=== PATIENT | female | born 1930 | race Caucasian/White ===

== ENCOUNTER 2017-12-08 07:58 | Inpatient (IN) | payer OTHER ==
[~2017-12-08] VITALS: Ht 167.6 cm; Wt 69.3 kg
[2017-12-08 08:57] LABS: Basophils # (auto) 0.1 uL; Basophils % (auto) 0.7 % (0.0-2.0); Eosinophils # (auto) 0.3 uL; Eosinophils % (auto) 2.1 % (0.0-7.0); Hematocrit 35.8 % (36.0-46.0); Hemoglobin 11.8 g/dL (12.2-16.2); Lymphocytes % (auto) 6.4 % (10.0-50.0); Mean Corpuscular Hemoglobin 31.1 pg (28.0-32.0); Mean Corpuscular Hgb Conc. 32.8 g/dL (32.0-36.0); Mean Corpuscular Volume 94.7 fL (80.0-100.0); Monocytes % (auto) 6.4 % (0.0-12.0); Neutrophils # (auto) 13.5 uL; Neutrophils % (auto) 84.4 % (37.0-80.0); Platelet Count (auto) 423 10^3/uL (140-450); Red Blood Cells 3.78 10^6/uL (4.0-5.20); Red Cell Distribution Width 15.6 % (11.8-14.3)
[2017-12-08 09:09] LABS: INR 0.99 (0.9-1.15); Partial Thromboplastin Time 29.2 sec (22.64-33.71); Prothrombin Time 10.8 sec (9.37-12.3)
[2017-12-08 09:23] LABS: Alanine Aminotransferase 15 U/L (13-56); Albumin 3.5 g/dL (3.4-5.0); Alkaline Phosphatase 67 U/L (45-117); Anion Gap 10 (5-15); Aspartate Aminotransferase 18 U/L (15-37); BUN/Creatinine Ratio 24.5; Bilirubin, Total 0.8 mg/dL (0.2-1.0); Blood Urea Nitrogen 39 mg/dL (7-18); Calcium 8.8 mg/dL (8.5-10.1); Carbon Dioxide 19 mmol/L (21-32); Chloride 108 mmol/L (98-107); GFR African American 39 mL/min; GFR Non-African American 33 mL/min; Glucose 116 mg/dL (74-106); Potassium 3.5 mmol/L (3.5-5.1); Sodium 137 mmol/L (136-145); Total Protein 7.4 g/dL (6.4-8.2)
[2017-12-08 10:22] LABS: Urine Bacteria MOD /hpf (None Seen); Urine Blood 1+ /uL (Negative); Urine Mucus FEW (None Seen); Urine Specific Gravity 1.029 (1.001-1.035); Urine WBC 108 /hpf (0 - 5); Urine WBC Clumps PRESENT /hpf (None Seen)
[2017-12-08] MEDS ORDERED: MORPHINE SULFATE 4 MG/ML SYR/VIAL IV ONE (10:30)
[2017-12-08] MEDS ORDERED: PROMETHAZINE HCL 25 MG/ML 1ML IV ONE (10:30)
[2017-12-08] MEDS ORDERED: PROMETHAZINE HCL 25 MG/ML 1ML IV PRN (10:45)
[2017-12-08] MEDS ORDERED: LABETALOL HCL 5 MG/ML ML 20ML VIAL IV PRN (10:45)
[2017-12-08] MEDS ORDERED: LACTULOSE 20Gm/30ML SOLN PO PRN (10:45)
[2017-12-08] MEDS ORDERED: NITROGLYCERIN 0.4 MG SL TAB SL PRN (10:45)
[2017-12-08] MEDS ORDERED: cefTRIAXone 1GM/10ml IVPUSH 10 ML IV ONE (10:45)
[2017-12-08] MEDS ORDERED: LORazepam 0.5 MG TAB PO PRN (10:45)
[2017-12-08] MEDS ORDERED: ACETAMINOPHEN 500 MG TAB PO PRN (10:45)
[2017-12-08] MEDS ORDERED: MORPHINE SULFATE 4 MG/ML SYR/VIAL IV PRN (10:45)
[2017-12-08] MEDS: SODIUM CHLORIDE 0.9% 1,000 ML IV SCH ×2 (11:00→20:38)
[2017-12-08 11:41] LABS: Folate (Folic Acid) 5.26 ng/mL (5.38-24)
[2017-12-08 17:00] VITALS: BP 100/52
[2017-12-08] MEDS ORDERED: NAPR1TAB PO (17:27)
[2017-12-08] MEDS ORDERED: SERT-135 PO (17:27)
[2017-12-08] MEDS: MORPHINE SULFATE 4 MG/ML SYR/VIAL IV PRN (20:06)
[2017-12-08] MEDS: HYDROcodone-ACET 5/325MG TAB PO PRN (21:42)
[2017-12-08 22:25] VITALS: BP 99/57
[2017-12-08] MEDS: TEMAZEPAM 15 MG CAP PO PRN (23:18)
[2017-12-09 05:16] VITALS: BP 120/68
[2017-12-09] MEDS: SODIUM CHLORIDE 0.9% 1,000 ML IV SCH ×2 (06:21→13:00)
[2017-12-09 06:42] LABS: Basophils # (auto) 0.2 uL; Basophils % (auto) 1.3 % (0.0-2.0); Eosinophils # (auto) 0.5 uL; Eosinophils % (auto) 3.4 % (0.0-7.0); Hematocrit 26.3 % (36.0-46.0); Hemoglobin 8.9 g/dL (12.2-16.2); Lymphocytes # (auto) 1.9 uL; Lymphocytes % (auto) 12.6 % (10.0-50.0); Mean Corpuscular Hemoglobin 32.4 pg (28.0-32.0); Mean Corpuscular Hgb Conc. 33.6 g/dL (32.0-36.0); Mean Corpuscular Volume 96.4 fL (80.0-100.0); Monocytes # (auto) 1.1 uL; Monocytes % (auto) 7.7 % (0.0-12.0); Neutrophils # (auto) 11.2 uL; Nucleated Red Blood Cells % 0.1 %; Platelet Count (auto) 332 10^3/uL (140-450); Red Blood Cells 2.73 10^6/uL (4.0-5.20); White Blood Cell 14.9 10^3/uL (4.4-10.8)
[2017-12-09 06:51] LABS: Potassium 3.9 mmol/L (3.5-5.1)
[2017-12-09 06:59] LABS: Albumin 2.6 g/dL (3.4-5.0); BUN/Creatinine Ratio 26.5; Calcium 7.8 mg/dL (8.5-10.1); Total Protein 6.3 g/dL (6.4-8.2)
[2017-12-09 07:01] LABS: Bilirubin, Total 0.7 mg/dL (0.2-1.0)
[2017-12-09 08:30] VITALS: BP 109/61
[2017-12-09] MEDS: cefTRIAXone 1GM/10ml IVPUSH 10 ML IV SCH (08:40)
[2017-12-09] MEDS: PANTOPRAZOLE 40 MG TAB PO SCH (08:40)
[2017-12-09] MEDS: CYANOCOBALAMIN 500 MCG TAB PO SCH (08:40)
[2017-12-09] MEDS: FOLIC ACID 1 MG TAB PO SCH (08:40)
[2017-12-09] MEDS: HYDROcodone-ACET 5/325MG TAB PO PRN ×2 (08:44→21:38)
[2017-12-09] MEDS: MORPHINE SULFATE 4 MG/ML SYR/VIAL IV PRN ×2 (11:27→19:34)
[2017-12-09 12:30] VITALS: BP 160/79
[2017-12-09] MEDS ORDERED: SERTRALINE HCL 50 MG TAB PO ONE (14:00)
[2017-12-09] MEDS: ALPRAZolam 0.25 MG TAB PO PRN (14:48)
[2017-12-09 16:33] VITALS: BP 104/69
[2017-12-09 21:52] VITALS: BP 127/91
[2017-12-09] MEDS: TEMAZEPAM 15 MG CAP PO PRN (22:57)
[2017-12-10] MEDS: ALPRAZolam 0.25 MG TAB PO PRN ×3 (01:16→19:40)
[2017-12-10 04:40] VITALS: BP 128/66
[2017-12-10] MEDS: SODIUM CHLORIDE 0.9% 1,000 ML IV SCH (05:38)
[2017-12-10 07:13] LABS: Basophils # (auto) 0.1 uL; Eosinophils # (auto) 0.6 uL; Lymphocytes # (auto) 1.7 uL; Platelet Count (auto) 325 10^3/uL (140-450)
[2017-12-10 07:20] LABS: Basophils % (auto) 0.6 % (0.0-2.0); Eosinophils % (auto) 5.2 % (0.0-7.0); Hematocrit 24.9 % (36.0-46.0); Hemoglobin 8.2 g/dL (12.2-16.2); Lymphocytes % (auto) 15.3 % (10.0-50.0); Mean Corpuscular Hemoglobin 31.9 pg (28.0-32.0); Mean Corpuscular Volume 96.6 fL (80.0-100.0); Monocytes % (auto) 8.8 % (0.0-12.0); Neutrophils % (auto) 70.1 % (37.0-80.0); Red Blood Cells 2.58 10^6/uL (4.0-5.20); White Blood Cell 11.4 10^3/uL (4.4-10.8)
[2017-12-10] MEDS: MORPHINE SULFATE 4 MG/ML SYR/VIAL IV PRN ×2 (08:16→19:40)
[2017-12-10] MEDS: SERTRALINE HCL 50 MG TAB PO SCH (08:22)
[2017-12-10 08:44] VITALS: BP 153/79
[2017-12-10] MEDS: FOLIC ACID 1 MG TAB PO SCH (09:10)
[2017-12-10] MEDS: PANTOPRAZOLE 40 MG TAB PO SCH (09:10)
[2017-12-10] MEDS: cefTRIAXone 1GM/10ml IVPUSH 10 ML IV SCH (09:10)
[2017-12-10] MEDS: CYANOCOBALAMIN 500 MCG TAB PO SCH (09:10)
[2017-12-10 11:53] VITALS: BP 152/78
[2017-12-10 16:29] VITALS: BP 123/72
[2017-12-10] MEDS: HYDROcodone-ACET 5/325MG TAB PO PRN (20:29)
[2017-12-10 22:00] VITALS: BP 133/77
[2017-12-10] MEDS: TEMAZEPAM 15 MG CAP PO PRN (22:24)
[2017-12-11] MEDS: MORPHINE SULFATE 4 MG/ML SYR/VIAL IV PRN ×4 (00:28→16:53)
[2017-12-11] MEDS: SODIUM CHLORIDE 0.9% 1,000 ML IV SCH (00:28)
[2017-12-11 05:00] VITALS: BP 138/85
[2017-12-11] MEDS: ALPRAZolam 0.25 MG TAB PO PRN ×2 (05:58→16:58)
[2017-12-11 06:37] LABS: BUN/Creatinine Ratio 23.4; Calcium 8.1 mg/dL (8.5-10.1); Potassium 4.4 mmol/L (3.5-5.1)
[2017-12-11 09:00] VITALS: BP 135/72
[2017-12-11] MEDS: cefTRIAXone 1GM/10ml IVPUSH 10 ML IV SCH (10:18)
[2017-12-11] MEDS: FOLIC ACID 1 MG TAB PO SCH (10:19)
[2017-12-11] MEDS: CYANOCOBALAMIN 500 MCG TAB PO SCH (10:19)
[2017-12-11] MEDS: PANTOPRAZOLE 40 MG TAB PO SCH (10:19)
[2017-12-11] MEDS: SERTRALINE HCL 50 MG TAB PO SCH (10:19)
[2017-12-11 13:00] VITALS: BP 161/70
[2017-12-11 17:00] VITALS: BP 141/75
[2017-12-11] MEDS: HYDROcodone-ACET 5/325MG TAB PO PRN (22:56)
[2017-12-11] MEDS: TEMAZEPAM 15 MG CAP PO PRN (22:56)
[2017-12-11 23:35] VITALS: BP 142/72
[2017-12-12] MEDS: MORPHINE SULFATE 4 MG/ML SYR/VIAL IV PRN (03:17)
[2017-12-12 05:00] VITALS: BP 131/76
[2017-12-12 07:26] LABS: Basophils # (auto) 0.1 uL; Basophils % (auto) 0.6 % (0.0-2.0); Eosinophils # (auto) 0.5 uL; Hemoglobin 8.6 g/dL (12.2-16.2); Lymphocytes # (auto) 1.7 uL; Lymphocytes % (auto) 12.7 % (10.0-50.0); Mean Corpuscular Hemoglobin 31.7 pg (28.0-32.0); Mean Corpuscular Hgb Conc. 33.1 g/dL (32.0-36.0); Mean Corpuscular Volume 95.9 fL (80.0-100.0); Monocytes # (auto) 1.3 uL; Monocytes % (auto) 9.5 % (0.0-12.0); Neutrophils # (auto) 9.8 uL; Neutrophils % (auto) 73.2 % (37.0-80.0); Platelet Count (auto) 344 10^3/uL (140-450); Red Blood Cells 2.71 10^6/uL (4.0-5.20); Red Cell Distribution Width 16.1 % (11.8-14.3); White Blood Cell 13.5 10^3/uL (4.4-10.8)
[2017-12-12] MEDS: FOLIC ACID 1 MG TAB PO SCH (08:33)
[2017-12-12] MEDS: SERTRALINE HCL 50 MG TAB PO SCH (08:33)
[2017-12-12] MEDS: CYANOCOBALAMIN 500 MCG TAB PO SCH (08:34)
[2017-12-12] MEDS: ALPRAZolam 0.25 MG TAB PO PRN (08:34)
[2017-12-12] MEDS: cefTRIAXone 1GM/10ml IVPUSH 10 ML IV SCH (08:34)
[2017-12-12] MEDS: PANTOPRAZOLE 40 MG TAB PO SCH (08:34)
[2017-12-12 08:39] VITALS: BP 137/88
[2017-12-12] MEDS ORDERED: DOCUSATE SOD 100 MG CAP PO ONE (11:00)
[2017-12-12 13:00] VITALS: BP 136/61
[2017-12-12] MEDS: HYDROcodone-ACET 5/325MG TAB PO PRN (13:22)
== END 2017-12-12 16:20 | disposition hospice, home (50) | DRG 871 ==
LOC: ER 07:58 → TELE 07:59 → TELE-EAST 14:49 → EAST 12-09 22:38
PROVIDERS: ADMIT Internal Medicine; ATTEND Internal Medicine
DX: A41.51 Sepsis due to Escherichia coli [E. coli] (principal); N17.0 Acute kidney failure with tubular necrosis; S32.592A Other specified fracture of left pubis, initial encounter for closed fracture; G62.9 Polyneuropathy, unspecified; S36.62XA Contusion of rectum, initial encounter; S32.10XA Unspecified fracture of sacrum, initial encounter for closed fracture; N39.0 Urinary tract infection, site not specified; W01.0XXA Fall on same level from slipping, tripping and stumbling without subsequent striking against object, initial encounter; S30.1XXA Contusion of abdominal wall, initial encounter; E53.8 Deficiency of other specified B group vitamins; Z66 Do not resuscitate; D64.9 Anemia, unspecified; R26.9 Unspecified abnormalities of gait and mobility; G89.4 Chronic pain syndrome; Z96.642 Presence of left artificial hip joint; K59.00 Constipation, unspecified; F41.9 Anxiety disorder, unspecified; G47.00 Insomnia, unspecified; I25.10 Atherosclerotic heart disease of native coronary artery without angina pectoris; F32.9 Major depressive disorder, single episode, unspecified; I71.4 Abdominal aortic aneurysm, without rupture; K57.30 Diverticulosis of large intestine without perforation or abscess without bleeding; M19.90 Unspecified osteoarthritis, unspecified site; Z87.81 Personal history of (healed) traumatic fracture; Y93.89 Activity, other specified; Z90.710 Acquired absence of both cervix and uterus; Y92.091 Bathroom in other non-institutional residence as the place of occurrence of the external cause; Y99.8 Other external cause status; Z90.49 Acquired absence of other specified parts of digestive tract; Z79.899 Other long term (current) drug therapy
CPT/HCPCS: 36415; 71045; 72192; 73564; 76775; 80048; 80053; 81001; 82550; 82607; 82746; 83880; 84443; 84484; 85025; 85610; 85652; 85730; 87086; 87088; 87186; 93005; 93886; 96374; 96375; 97110; 99291

== ENCOUNTER 2018-01-21 09:35 | Inpatient (IN) | payer OTHER ==
[~2018-01-21] VITALS: Ht 160 cm; Wt 58.7 kg
[~2018-01-21 09:35] MED LIST: NAPR1TAB PO; SERT-135 PO
[2018-01-21 11:52] LABS: Basophils # (auto) 0.1 uL; Basophils % (auto) 0.6 % (0.0-2.0); Eosinophils # (auto) 0 uL; Hematocrit 40.2 % (36.0-46.0); Lymphocytes # (auto) 1.1 uL; Lymphocytes % (auto) 5.7 % (10.0-50.0); Mean Corpuscular Hemoglobin 29.7 pg (28.0-32.0); Mean Corpuscular Hgb Conc. 32.2 g/dL (32.0-36.0); Monocytes # (auto) 0.6 uL; Monocytes % (auto) 3.4 % (0.0-12.0); Neutrophils # (auto) 16.8 uL; Neutrophils % (auto) 90.3 % (37.0-80.0); Platelet Count (auto) 437 10^3/uL (140-450); Red Blood Cells 4.37 10^6/uL (4.0-5.20); Red Cell Distribution Width 15.2 % (11.8-14.3); White Blood Cell 18.6 10^3/uL (4.4-10.8)
[2018-01-21] MEDS ORDERED: SODIUM CHLORIDE 0.9% 1,000 ML IVB ONE (12:10)
[2018-01-21] MEDS ORDERED: ONDANSETRON HCL 4 MG/2 ML VIAL IV ONE (12:15)
[2018-01-21 12:21] LABS: Alanine Aminotransferase 12 U/L (13-56); Albumin 3.8 g/dL (3.4-5.0); Alkaline Phosphatase 122 U/L (45-117); Anion Gap 16 (5-15); Aspartate Aminotransferase 24 U/L (15-37); BUN/Creatinine Ratio 11.6; Bilirubin, Total 0.5 mg/dL (0.2-1.0); Blood Urea Nitrogen 14 mg/dL (7-18); Calcium 9.2 mg/dL (8.5-10.1); Carbon Dioxide 20 mmol/L (21-32); Chloride 105 mmol/L (98-107); GFR African American 54 mL/min; GFR Non-African American 45 mL/min; Glucose 121 mg/dL (74-106); Magnesium 2.3 mg/dL (1.6-2.6); Potassium 3.2 mmol/L (3.5-5.1); Sodium 141 mmol/L (136-145); Total Protein 8.4 g/dL (6.4-8.2)
[2018-01-21] MEDS ORDERED: WARF10TA PO (12:32)
[2018-01-21 13:36] LABS: Lactic Acid w/Reflex 3.6 mmol/L (0.4-2.0)
[2018-01-21 13:51] LABS: Amylase 76 U/L (25-115); Lipase 391 U/L (73-393)
[2018-01-21] MEDS ORDERED: HYDROcodone-ACET 5/325MG TAB PO PRN (14:15)
[2018-01-21] MEDS ORDERED: cefTRIAXone 1GM/10ml IVPUSH 10 ML IV ONE (14:15)
[2018-01-21] MEDS ORDERED: PANTOPRAZOLE 40 MG/10 ML VIAL IV ONE (14:15)
[2018-01-21] MEDS ORDERED: NITROGLYCERIN 0.4 MG SL TAB SL PRN (14:15)
[2018-01-21] MEDS ORDERED: LORazepam 0.5 MG TAB PO PRN (14:15)
[2018-01-21] MEDS ORDERED: MORPHINE SULF INJ 2 MG/ML SYRINGE 1ML IV PRN (14:15)
[2018-01-21] MEDS ORDERED: TEMAZEPAM 15 MG CAP PO PRN (14:15)
[2018-01-21] MEDS ORDERED: ACETAMINOPHEN 500 MG TAB PO PRN (14:15)
[2018-01-21 14:35] LABS: INR 1.76 (0.9-1.15); Prothrombin Time 18.2 sec (9.27-12.13)
[2018-01-21] MEDS ORDERED: PANTOPRAZOLE 40 MG TAB PO ONE (14:45)
[2018-01-21] MEDS ORDERED: SERTRALINE HCL 50 MG TAB PO ONE (14:45)
[2018-01-21] MEDS: SODIUM CHLORIDE 0.9% 1,000 ML IV SCH (16:02)
[2018-01-21] MEDS: PROMETHAZINE HCL 25 MG/ML 1ML IV PRN ×2 (16:31→22:04)
[2018-01-21] MEDS: metroNIDAZOLE 500MG/100ML 100 ML IV SCH (18:23)
[2018-01-21 18:44] VITALS: BP 156/79
[2018-01-21 19:41] LABS: Hematocrit 38.1 % (36.0-46.0); Hemoglobin 12.5 g/dL (12.2-16.2)
[2018-01-21 20:20] VITALS: BP 155/75
[2018-01-21] MEDS: SERTRALINE HCL 50 MG TAB PO SCH (22:03)
[2018-01-21] MEDS: MORPHINE SULF INJ 2 MG/ML SYRINGE 1ML IV PRN (22:04)
[2018-01-21 22:12] VITALS: BP 155/75
[2018-01-22] VITALS (7 sets, daily range): BP systolic 145–173; BP diastolic 73–90
[2018-01-22] MEDS: metroNIDAZOLE 500MG/100ML 100 ML IV SCH ×2 (00:27→05:24)
[2018-01-22 01:13] LABS: Hematocrit 36.7 % (36.0-46.0); Hemoglobin 11.6 g/dL (12.2-16.2)
[2018-01-22] MEDS: PROMETHAZINE HCL 25 MG/ML 1ML IV PRN ×6 (02:15→22:15)
[2018-01-22] MEDS: SODIUM CHLORIDE 0.9% 1,000 ML IV SCH (04:21)
[2018-01-22] MEDS: MORPHINE SULF INJ 2 MG/ML SYRINGE 1ML IV PRN ×2 (04:59→22:14)
[2018-01-22 07:40] LABS: INR 2.23 (0.9-1.15); Partial Thromboplastin Time 40.7 sec (23.78-33.04); Prothrombin Time 22.8 sec (9.27-12.13)
[2018-01-22 07:42] LABS: Basophils # (auto) 0.1 uL; Basophils % (auto) 0.3 % (0.0-2.0); Eosinophils # (auto) 0 uL; Hematocrit 38.8 % (36.0-46.0); Hemoglobin 12.6 g/dL (12.2-16.2); Lymphocytes # (auto) 1.3 uL; Lymphocytes % (auto) 7.5 % (10.0-50.0); Mean Corpuscular Hemoglobin 30.1 pg (28.0-32.0); Mean Corpuscular Hgb Conc. 32.5 g/dL (32.0-36.0); Mean Corpuscular Volume 92.8 fL (80.0-100.0); Monocytes # (auto) 1.1 uL; Monocytes % (auto) 6.2 % (0.0-12.0); Neutrophils # (auto) 15.5 uL; Platelet Count (auto) 353 10^3/uL (140-450); Red Blood Cells 4.18 10^6/uL (4.0-5.20); Red Cell Distribution Width 15.6 % (11.8-14.3); White Blood Cell 18.1 10^3/uL (4.4-10.8)
[2018-01-22 07:56] LABS: Albumin 3.5 g/dL (3.4-5.0); BUN/Creatinine Ratio 9.6; Bilirubin, Total 0.6 mg/dL (0.2-1.0); Calcium 8.1 mg/dL (8.5-10.1); Total Protein 7.7 g/dL (6.4-8.2)
[2018-01-22 08:00] LABS: Potassium 2.9 mmol/L (3.5-5.1)
[2018-01-22] MEDS ORDERED: POTASSIUM CHL 10% (20 MEQ/15ML) 15ml ORAL SOLN PO ONE (08:45)
[2018-01-22] MEDS: cefTRIAXone 1GM/10ml IVPUSH 10 ML IV SCH (09:04)
[2018-01-22] MEDS: SERTRALINE HCL 50 MG TAB PO SCH ×2 (09:07→22:13)
[2018-01-22] MEDS ORDERED: PANTOPRAZOLE 40 MG TAB PO SCH (10:00)
[2018-01-22] MEDS: SOD CHL 0.9%/ KCL 40MEQ 1,000 ML IV SCH ×2 (11:29→23:20)
[2018-01-22] MEDS: metroNIDAZOLE 500 MG TAB PO SCH ×2 (14:16→22:13)
[2018-01-23 05:46] VITALS: BP 176/95
[2018-01-23] MEDS: metroNIDAZOLE 500 MG TAB PO SCH (06:27)
[2018-01-23 06:46] LABS: Basophils # (auto) 0.1 uL; Basophils % (auto) 0.3 % (0.0-2.0); Eosinophils # (auto) 0 uL; Hemoglobin 13.9 g/dL (12.2-16.2); Lymphocytes # (auto) 1.2 uL; Lymphocytes % (auto) 5.9 % (10.0-50.0); Mean Corpuscular Hemoglobin 30.9 pg (28.0-32.0); Mean Corpuscular Volume 93.4 fL (80.0-100.0); Monocytes # (auto) 1.4 uL; Monocytes % (auto) 6.7 % (0.0-12.0); Neutrophils # (auto) 17.9 uL; Neutrophils % (auto) 87.1 % (37.0-80.0); Nucleated Red Blood Cells % 0.1 %; Platelet Count (auto) 425 10^3/uL (140-450); Red Blood Cells 4.49 10^6/uL (4.0-5.20); Red Cell Distribution Width 15.4 % (11.8-14.3); White Blood Cell 20.5 10^3/uL (4.4-10.8)
[2018-01-23 07:06] LABS: BUN/Creatinine Ratio 10.3; Calcium 8.2 mg/dL (8.5-10.1); Magnesium 2.2 mg/dL (1.6-2.6)
[2018-01-23 07:11] LABS: Potassium 2.7 mmol/L (3.5-5.1)
[2018-01-23 08:00] VITALS: BP 160/94
[2018-01-23] MEDS: PROMETHAZINE HCL 25 MG/ML 1ML IV PRN (09:13)
[2018-01-23] MEDS: cefTRIAXone 1GM/10ml IVPUSH 10 ML IV SCH (09:14)
[2018-01-23] MEDS: POTASSIUM CHL 20MEQ/100ML 100 ML IV SCH ×2 (09:14→11:34)
[2018-01-23] MEDS: SERTRALINE HCL 50 MG TAB PO SCH ×2 (10:00→23:09)
[2018-01-23] MEDS ORDERED: ERTAPENEM SOD INJ 1 GM in SODIUM CHL 0.9% 50 ML IV ONE (10:15)
[2018-01-23] MEDS: PANTOPRAZOLE 40 MG/10 ML VIAL IV SCH (10:30)
[2018-01-23] MEDS ORDERED: POTASSIUM CHL 20MEQ/100ML 100 ML IV SCH (10:30)
[2018-01-23] MEDS ORDERED: LISINOPRIL 10 MG TAB PO ONE (11:00)
[2018-01-23 12:00] VITALS: BP 164/92
[2018-01-23] MEDS ORDERED: metroNIDAZOLE 500MG/100ML 100 ML IV SCH (14:00)
[2018-01-23 15:00] VITALS: BP 163/102
[2018-01-23 15:15] LABS: Urine Bacteria NONE SEEN /hpf (None Seen); Urine Blood TRACE /uL (Negative); Urine Specific Gravity 1.013 (1.001-1.035); Urine WBC 1 /hpf (0 - 5)
[2018-01-23] MEDS ORDERED: hydrALAZINE HCL 20 MG/ML VL IV PRN (15:15)
[2018-01-23] MEDS ORDERED: POTASSIUM CHL 20MEQ/100ML 100 ML IV ONE (15:15)
[2018-01-23] MEDS: CHOLESTYRAMINE 4 GM POWDER PO SCH ×2 (17:40→22:00)
[2018-01-23] MEDS: SOD CHL 0.9%/ KCL 40MEQ 1,000 ML IV SCH (17:41)
[2018-01-23] MEDS ORDERED: ERTAPENEM SOD INJ 1 GM in SODIUM CHL 0.9% 50 ML IV SCH (18:30)
[2018-01-23] MEDS ORDERED: cloNIDine HCL 0.1 MG TAB PO PRN (19:00)
[2018-01-23 21:46] VITALS: BP 145/85
[2018-01-23] MEDS: metroNIDAZOLE 500MG/100ML 100 ML IV SCH (23:09)
[2018-01-24] MEDS: MORPHINE SULF INJ 2 MG/ML SYRINGE 1ML IV PRN ×2 (02:00→06:25)
[2018-01-24 04:46] VITALS: BP 142/78
[2018-01-24] MEDS: metroNIDAZOLE 500MG/100ML 100 ML IV SCH ×2 (05:26→12:32)
[2018-01-24 07:17] LABS: Basophils # (auto) 0.1 uL; Basophils % (auto) 0.3 % (0.0-2.0); Eosinophils # (auto) 0 uL; Hematocrit 40.8 % (36.0-46.0); Hemoglobin 13.5 g/dL (12.2-16.2); Lymphocytes # (auto) 1.2 uL; Lymphocytes % (auto) 4.2 % (10.0-50.0); Mean Corpuscular Hemoglobin 30.8 pg (28.0-32.0); Mean Corpuscular Hgb Conc. 33.2 g/dL (32.0-36.0); Mean Corpuscular Volume 92.8 fL (80.0-100.0); Monocytes # (auto) 2.5 uL; Monocytes % (auto) 8.7 % (0.0-12.0); Neutrophils # (auto) 24.6 uL; Neutrophils % (auto) 86.8 % (37.0-80.0); Nucleated Red Blood Cells % 0.1 %; Platelet Count (auto) 412 10^3/uL (140-450); Red Cell Distribution Width 15.6 % (11.8-14.3); White Blood Cell 28.3 10^3/uL (4.4-10.8)
[2018-01-24 07:21] LABS: INR 2.53 (0.9-1.15); Partial Thromboplastin Time 41.5 sec (23.78-33.04); Prothrombin Time 25.7 sec (9.27-12.13)
[2018-01-24 07:28] LABS: BUN/Creatinine Ratio 13.7; Calcium 8.3 mg/dL (8.5-10.1); Potassium 3.4 mmol/L (3.5-5.1)
[2018-01-24 09:00] VITALS: BP 119/70
[2018-01-24] MEDS ORDERED: LISINOPRIL 10 MG TAB PO SCH (10:00)
[2018-01-24] MEDS: PANTOPRAZOLE 40 MG/10 ML VIAL IV SCH (10:52)
[2018-01-24] MEDS: SERTRALINE HCL 50 MG TAB PO SCH (10:53)
[2018-01-24] MEDS ORDERED: POTASSIUM CHL 20 Meq TABLET PO ONE (11:15)
[2018-01-24] MEDS ORDERED: VANCOMYCIN PER PHARMACY 0 MG IV SCH (11:15)
[2018-01-24] MEDS: CHOLESTYRAMINE 4 GM POWDER PO SCH (12:31)
[2018-01-24 12:55] VITALS: BP 121/74
[2018-01-24] MEDS ORDERED: VANCOMYCIN 750 MG in D5W 5% 250 ML IV SCH (13:00)
[2018-01-24 17:01] VITALS: BP 122/74
[2018-01-24] MEDS ORDERED: SODIUM BICARBONATE 8.4% INJ 50ML SYRINGE IV ONE (18:59)
[2018-01-24] MEDS ORDERED: EPINEPHrine HCL 1 MG/10 ML SYRG IV ONE (18:59)
[2018-01-25] MEDS ORDERED: cefTRIAXone 1GM/10ml IVPUSH 10 ML IV SCH (09:00)
== END 2018-01-24 19:00 | disposition expired | DRG 871 ==
LOC: EDUNIT# 09:35 → EDBD 09:35 → ER 09:35 → TELE 09:36 → TELE-CENTR 17:05
PROVIDERS: ADMIT Internal Medicine; ATTEND Internal Medicine
PROC: 5A12012 Performance of Cardiac Output, Single, Manual (ICD-10-PCS; principal; 2018-01-24)
DX: A41.9 Sepsis, unspecified organism (principal); I71.3 Abdominal aortic aneurysm, ruptured; I44.2 Atrioventricular block, complete; K52.9 Noninfective gastroenteritis and colitis, unspecified; E87.6 Hypokalemia; E86.0 Dehydration; M19.90 Unspecified osteoarthritis, unspecified site; F32.9 Major depressive disorder, single episode, unspecified; F41.9 Anxiety disorder, unspecified; Z90.710 Acquired absence of both cervix and uterus; Z90.49 Acquired absence of other specified parts of digestive tract; S32.10XD Unspecified fracture of sacrum, subsequent encounter for fracture with routine healing; W18.39XD Other fall on same level, subsequent encounter; S32.592D Other specified fracture of left pubis, subsequent encounter for fracture with routine healing; Z87.440 Personal history of urinary (tract) infections
CPT/HCPCS: 36415; 71045; 71046; 74176; 80048; 80053; 81001; 82150; 82270; 82378; 82962; 83605; 83690; 83735; 84132; 84484; 85014; 85018; 85025; 85045; 85610; 85652; 85730; 87040; 87045; 87081; 87086; 87493; 87899; 93005; 93971; 94761; 96361; 96374; 96375; C9113; J1335; J2405; J3480; J3490; J7060